=== PATIENT | female | born 1995 | race Caucasian/White ===

== ENCOUNTER 2017-02-06 15:25 | Outpatient (CLI) | payer BC ==
--- NOTE | 2017-03-03 09:06 | HP ---
ADMIT: 02/06/2017 RM/LOC: 215 [facility] MR#: [id number] [address] [facility] [address] [place], [place] [id number] WAYNE SINGH [address] [address] Pre-OP History and Physical SEX: F AGE: 21 : 1995 DATE OF SERVICE: CHIEF COMPLAINT: Vaginal bleeding. HISTORY OF PRESENT ILLNESS: This is a 21-year-old female, 1, para 0, with an intrauterine at 26 weeks and 1/7th weeks' gestation with estimated date of confinement of 05/14/2017. Her estimated date of confinement is based off her last menstrual period and consistent with a 9- week ultrasound. She initially presented to the emergency room with complaints of bright red bleeding. She did complain of also some pelvic pressure and some mild cramping that started at 10 a.m. this morning. However, at the time of arrival into the emergency room, she has had the cramping, was no longer significant and the bleeding as well brought her in. Her has been complicated by obesity and potential Zika exposure. She has not had testing for Zika virus yet. LABORATORY DATA: Blood type is O positive. Antibody screen negative. Hepatitis B surface antigen negative, RPR nonreactive, rubella immune, HIV negative, Pap was normal. Gonorrhea and chlamydia negative. Diabetic screen 130. PAST MEDICAL HISTORY: She denies hypertension, diabetes, asthma, kidney, or thyroid disease. PAST SURGICAL HISTORY: None. SOCIAL HISTORY: She denies tobacco, alcohol, or drug use. The father of the baby is involved. ALLERGIES: NO KNOWN DRUG ALLERGIES. CURRENT MEDICATIONS: vitamins. PHYSICAL EXAMINATION: VITAL SIGNS: Temperature is 98.7, blood pressure 117/75, pulse 104, respirations 16. GENERAL: This is a pleasant female. She is not in any acute distress and does not appear uncomfortable. HEENT: Head is normocephalic and atraumatic. Pupils are equal, round, and reactive to light and accommodation. Extraocular muscles are intact. NECK: Supple. HEART: Regular rate and rhythm. LUNGS: Clear. ABDOMEN: Soft, nontender, and gravid. EXTREMITIES: Nontender. 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 Decelerations are absent. Uterine tocometer shows uterine contractions lasting 30 to 50 seconds, every 2 minutes. On sterile speculum exam, there is a moderate amount of pooling that fills the vagina. The fluid does appear slightly watery in addition to bright red. The cervix does appear ADMIT: 02/06/2017 RM/LOC: 215 [facility] MR#: [id number] [address] [place] [id number] WAYNE SINGH R [address] [place] [address] Pre-OP History and Physical SEX: F AGE: 21 : 1995 close to 1 cm dilated. There was no active bleeding coming from the cervix once the pooled watery blood mixture was removed from the vagina. Ultrasound was performed at the bed side. Single intrauterine was noted. Vertex presentation. Estimated weight 1040 g, 2 pounds 5 ounces. Amniotic fluid index was 11.8 cm. Placenta appears anterior and does not have an abnormal appearance to it. The cervix was not visualized. IMPRESSION: This is a 21-year-old female, 1, para 0, with an intrauterine at 26-1/7th weeks gestation with 2nd trimester bleeding; differential diagnosis, placental abruption, pre-term labor, and possibly premature rupture of membranes. PLAN: At this time, I have discussed this patient with Dr. Comer at [facility] with Maternal- Medicine. At this time, we will start IV magnesium sulfate and administer betamethasone 12 mg IM x1. We will plan transfer to [facility] for further evaluation and management, given her gestational age. Kajal Del Castillo MD/ karen JOB #: [id number] CC: Priscilla Ruiz, Attending Physician UNKNOWN, Family Physician
== END 2017-02-06 18:10 | disposition short-term general hospital (02) ==
LOC: 2LDRP 15:25 → BC 15:25
DX: O46.92 Antepartum hemorrhage, unspecified, second trimester (principal); Z3A.26 26 weeks gestation of pregnancy

== ENCOUNTER 2017-02-19 10:20 | Outpatient (CLI) | payer BC ==
--- NOTE | 2017-03-03 09:22 | HP ---
ADMIT: 02/19/2017 RM/LOC: 215 [facility] MR#: [id number] 2620 [facility] [address] [place], [place] [phone] WAYNE SINGH [address] [id number] Pre-OP History and Physical SEX: F AGE: 21 : 1995 DATE OF SERVICE: CHIEF COMPLAINT: Uterine contractions. HISTORY OF PRESENT ILLNESS: This is a 21-year-old female, 1, para 0, who [facility] with an intrauterine at 28 weeks gestation and estimated date of confinement of 05/14/2017. Her estimated date of confinement is based off last menstrual period and consistent with a 9-week ultrasound. She presents today with complaints of uterine contractions that started at 0830 hours this morning. She denies vaginal bleeding or loss of fluid and reports good movement. This has been complicated by an episode of second trimester bleeding approximately two weeks ago. At that time, she was seen and evaluated on Labor and Delivery, and secondary to the bleeding and uterine contractions, she was sent via ambulance to [facility]. She did receive steroids and magnesium sulfate at that time. She was monitored in [place] and encouraged to stay in [place], however, did return to [place]. Her has otherwise been complicated by possible Zika virus and obesity. LABORATORY DATA: Blood type is O positive. Antibody screen negative. Hepatitis B surface antigen negative. RPR nonreactive. Rubella immune. HIV negative. Pap was normal. Gonorrhea and chlamydia negative. Diabetic screen 130. PAST MEDICAL HISTORY: She denies hypertension, diabetes, asthma, kidney, or thyroid disease. PAST SURGICAL HISTORY: None. SOCIAL HISTORY: She denies tobacco, alcohol, or drug use. ALLERGIES: NO KNOWN DRUG ALLERGIES. CURRENT MEDICATIONS: vitamins. PHYSICAL EXAMINATION: VITAL SIGNS: She is afebrile. Her pulse is 93, blood pressure is 115/71. GENERAL: This is a pleasant female. She does not appear uncomfortable or in any acute distress. HEENT: Head is normocephalic, atraumatic. Pupils are equal, round, react to light and accommodation. Extraocular muscles are intact. NECK: Supple. HEART: Regular rate and rhythm. LUNGS: Clear bilaterally. ABDOMEN: Soft, nontender, and nondistended. Gravid. EXTREMITIES: Nontender. heart tones are 140s, moderate variability is present. A 10 x 10 accelerations are present. Rare variable deceleration is present. She is ADMIT: 02/19/2017 RM/LOC: 215 [facility] MR#: [id number] [address] [phone] WAYNE SINGH [address] [place] [address] Pre-OP History and Physical SEX: F AGE: 21 : 1995 andrew every 2 to 6 minutes. Her cervix was examined and felt to be 1 to 2 cm dilated, 50% effaced, moderate consistency very posterior, fetus is -2 to -1 station. LABORATORY DATA: White blood cell counts is 17.7, hemoglobin 13.6, hematocrit 38.7, platelet count is 285. Urinalysis does show 3+ leukocyte esterase, trace blood. Specific gravity is 1.002. A culture was set up and there are 7 wbc's per high-power field. IMPRESSION: 1. This is a 21-year-old female, 1, para 0, with an intrauterine at 28 weeks gestation. 2. Threatened labor. 3. Urinary tract infection. PLAN: At this time, we will start magnesium sulfate for neuro protection as well as Indocin for tocolysis. She has already received a course of steroids less than two weeks ago. I will also start her on Macrobid 100 mg p.o. b.i.d. for urinary tract infection and await the results of the culture. Given her gestational age and uterine contractions, I have discussed with Dr. Perdomo of Maternal Medicine at [facility] and they are willing to accept her as a transfer given the threatened labor. We will review the risks and benefits of transfer with the patient prior to transferring her. Kajal Del Castillo MD/ karen JOB #: [id number] CC: Priscilla Ruiz, Attending Physician UNKNOWN, Family Physician
== END 2017-02-19 14:10 | disposition short-term general hospital (02) ==
LOC: 2LDRP 10:20 → BC 10:20
DX: O47.03 False labor before 37 completed weeks of gestation, third trimester (principal); Z3A.28 28 weeks gestation of pregnancy

== ENCOUNTER 2017-03-28 09:22 | Emergency (ER) | payer BC ==
--- NOTE | 2017-04-04 17:58 | ER ---
ADMIT: 03/28/2017 RM/LOC: ER [facility] MR#: [id number] [id number] [place], [place] [phone] WAYNE SINGH [address] [place] [address] Emergency Room Report SEX: F AGE: 21 : 1995 DATE: 03/28/2017 The patient is a 21-year-old female, 1, had a baby about a week and half ago, vaginal delivery. Baby is in NICU in [place], but she is and she presents to us with right abdominal quadrant pain that radiates to her back and epigastric, started last night after she ate a started at 10 o'clock at night. She says she never had any issues like this before, have not had any problems while she was . She denies any nausea, vomiting, diarrhea, or fever but was concerned because the pain was still present. She has no past medical history. Takes Motrin for pain and took some Motrin this morning, at 6 o'clock in the morning. PHYSICAL EXAMINATION: VITAL SIGNS: Within normal limits. Blood pressure 125/86, heart rate is 89, respirations 20, temp 98.1, and O2 sats 99%. Examination negative. CLINICAL IMPRESSION: After Helicobacter pylori and lipase testing was done. Helicobacter pylori gastritis, right upper abdominal quadrant pain. She was sent home with a prescription of amoxicillin, Prevacid, and metronidazole. Follow up with primary provider. Instructions given for H. pylori eradication diet, hydration, and followup. LALIT Eubanks / Paco Guerra MD / modl JOB #: [id number] CC: Paco Guerra MD, Attending Physician Andra Becerra MD, Family Physician
== END 2017-03-28 11:24 | disposition home or self-care (01) ==
LOC: ER 09:22
DX: K29.70 Gastritis, unspecified, without bleeding (principal); B96.81 Helicobacter pylori [H. pylori] as the cause of diseases classified elsewhere; Z79.899 Other long term (current) drug therapy

== ENCOUNTER 2017-04-25 20:54 | Emergency (ER) | payer BC ==
--- NOTE | 2017-04-26 06:58 | ER ---
ADMIT: 04/25/2017 RM/LOC: ER [facility] MR#: [id number] [address] [address] WAYNE SINGH R [address] [place] [address] Emergency Room Report SEX: F AGE: 21 : 1995 DATE: 04/25/2017 HISTORY OF PRESENT ILLNESS: The patient is a 21-year-old female with chief complaint of epigastric abdominal pain which radiates to the back, it started an hour ago and per patient it is very similar to the pain she had some months ago and at that time, she was diagnosed with H. pylori and received the treatments. The patient states she recently delivered a baby and she is nursing at the moment. The patient states she has some nausea without vomiting and the last bowel movement was today and was normal. Pain is stabbing and is moderate to severe and at the moment, is moderate in severity. PHYSICAL EXAMINATION: VITAL SIGNS: Stable. GENERAL: The patient is in [id number]-wobbkbst distress. HEAD and NECK: Negative and normal. CHEST: Clear bilaterally. HEART: Normal heart sounds. ABDOMEN: Has mild epigastric tenderness. No right upper quadrant tenderness. No CVA tenderness. No guarding or rebound. The rest of the physical examination is normal. EMERGENCY ROOM COURSE: The patient received the IV fluids and morphine IV and GI cocktail, which all decreased the pain substantially. Lab works shows increased AST and ALT to 160 and 95 respectively, and also the patient's urine has 22 red blood cells and 1 white blood cell. The patient's WBC was elevated at 17.8, possibly due to the pain versus other causes. The patient was positive for H. pylori, it was reactive. Pain was substantially controlled. The possibility of other causes along with H. pylori was discussed with the patient, but after discussing the case with the patient, we decided as the symptom is already resolving and the patient has no distress and the abdominal exam showed soft benign abdomen without any new symptoms or signs, we can safely send the patient home with a prescription for amoxicillin and clarithromycin, but I will hold on pantoprazole because of the . I asked the patient to double check with her primary doctor in the morning for further followups and treatments as needed. FINAL DIAGNOSES: 1. Abdominal pain, resolved. 2. Helicobacter pylori infection. Minesh Armijo MD/ karen JOB #: [id number] CC: Minesh Armijo MD, Attending Physician
== END 2017-04-26 00:30 | disposition home or self-care (01) ==
LOC: ER 20:54
DX: R10.13 Epigastric pain (principal); A04.8 Other specified bacterial intestinal infections; Z79.899 Other long term (current) drug therapy

== ENCOUNTER 2017-04-27 15:15 | Emergency (ER) | payer BC ==
--- NOTE | 2017-05-03 14:44 | ER ---
ADMIT: 04/27/2017 RM/LOC: ER [facility] MR#: [id number] [address] [address] WAYNE SINGH [address] [place] [address] Emergency Room Report SEX: F AGE: 21 : 1995 DATE: 04/27/2017 ADDENDUM: CHIEF COMPLAINT: Abdominal pain. HISTORY OF PRESENT ILLNESS: This is a 21-year-old female, who said this has been going on for about 2 days now, worsening over the last 2 days. Overall findings, she does have a choledocholelithiasis. I did speak with Dr. Restrepo initially regarding this patient at 1700. He is willing to remove the gallbladder, but said she definitely probably needs an ERCP, once discussing with the patient, she has actually a baby in the NICU at the [facility]. She prefers to be transferred to the [facility] for treatment. I did speak with Dr. Macias at [facility], she has accepted the patient at 1753. IMPRESSION: Choledocholelithiasis. DISPOSITION: She is stable at transfer. LALIT Fritz / Ant Lowry MD / karen JOB #: [id number] CC: Ant Lowry MD, Attending Physician Andra Becerra MD, Family Physician
== END 2017-04-27 19:05 | disposition short-term general hospital (02) ==
LOC: ER 15:15
DX: K80.50 Calculus of bile duct without cholangitis or cholecystitis without obstruction (principal); Z79.899 Other long term (current) drug therapy